=== PATIENT | male | born 1965 | race Caucasian/White ===

== ENCOUNTER 2018-01-04 07:01 | Observation (INO) ==
[2018-01-04] MEDS ORDERED: LACTATED RINGERS 1,000 ML IV STA (07:22)
[2018-01-04 09:04] LABS: Basophils # 0.1 10*3/uL (0.0-0.2); Basophils % 0.4 % (0.0-0.8); Eosinophils # 0.3 10*3/uL (0.0-0.87); Eosinophils % 2.2 % (0.00-10.9); Hematocrit 46.2 VOL% (42.0-52.0); Hemoglobin 15.7 GM/DL (14.0-18.0); Immature Granulocytes % 0.3 %; Immature Granulocytes Absolute 0.04 #; Lymphocytes # 2.4 10*3/uL (1.4-4.0); Lymphocytes % 17.1 % (21.2-54.2); Mean Corpuscular Hemoglobin 31 PG (27-34); Mean Corpuscular Volume 91.1 FL (87-102); Mean Platelet Volume 10.1 FL (9.6-12.0); Monocytes # 1.3 10*3/uL (0.11-0.8); Monocytes % 9.1 % (1.7-12.7); Neutrophils % 70.9 % (38.7-73.9); Platelet Count 310 T/CUMM (130-400); Red Blood Count 5.07 MC/CUMM (3.8-5.5); Red Cell Distribution Width 12.3 % (9.3-17.3); White Blood Count 14.1 T/CUMM (4-12)
[2018-01-04 09:18] LABS: PT Patient Result 10.5 SECS; Partial Thromboplastin Time 27.9 SECS (0-40)
[2018-01-04 09:28] LABS: Lactic Acid 0.7 MMOL/L (0.4-2.0)
[2018-01-04 09:29] LABS: Alanine Aminotransferase 72 U/L (16-61); Albumin 3.7 G/DL (3.4-5.0); Alkaline Phosphatase 95 U/L (45-117); Aspartate Amino Transferase 62 U/L (0-37); Blood Urea Nitrogen 8 MG/DL (7-18); Calcium 8.9 MG/DL (8.5-10.1); Glucose 78 MG/DL (74-106); Potassium 4.3 MMOL/L (3.5-5.1); Sodium 136 MMOL/L (136-145); Total Protein 7.3 G/DL (6.4-8.3)
[2018-01-04] MEDS ORDERED: KETOROLAC 30 MG/1 ML VIAL IV STA (10:32)
[2018-01-04] MEDS ORDERED: KETOROLAC 30 MG/1 ML VIAL ONE (10:35)
[2018-01-04 10:41] LABS: Apearance,Urine CLEAR (Clear); Bilirubin,Urine Negative (Negative); Blood, Urine Negative (Negative); Glucose,Urine (UA) Negative (Negative); Ketones,Urine 20 mg/dL (Negative); Mucus,Urine Occasional /LPF (Occasional); Nitrite,Urine Negative (Negative); Protein,Urine Negative; RBC,Urine 1 /HPF (0-4); Sperm,Urine Occasional /HPF (Negative); Urine Color Yellow (Yellow); Urine Specific Gravity 1.047 (1.001-1.035); Urine Urobilinogen < 2.0 EU/DL (0.2-1.0); WBC,Urine 1 /HPF (0-6)
[2018-01-04 10:57] LABS: Barbiturates Screen,Urine Negative (Negative); Benzodiazepines Screen,Urine Negative (Negative); Cannabinoid Screen,Urine Negative (Negative); Opiate Screen,Urine Negative (Negative); Phencyclidine Screen,Urine Negative (Negative)
[2018-01-04] MEDS ORDERED: MORPHINE 2 MG/1 ML SYRINGE IV PRN (13:09)
[2018-01-04] MEDS ORDERED: chlordiazePOXIDE 25 MG CAPSULE PO PRN (13:09)
[2018-01-04] MEDS ORDERED: ACETAMINOPHEN 325 MG TABLET PO PRN (13:09)
[2018-01-04] MEDS: THIAMINE 100 MG TABLET PO SCH (14:09)
[2018-01-04] MEDS: SODIUM CHLORIDE 0.9% 1,000 ML IV SCH (14:09)
[2018-01-04] MEDS: FOLIC ACID 0.4 MG TABLET PO SCH (14:09)
[2018-01-04] MEDS: ONDANSETRON 4 MG/2 ML VIAL IV PRN (14:13)
[2018-01-04 14:55] LABS: Hematocrit 46.4 VOL% (42.0-52.0); Hemoglobin 15.7 GM/DL (14.0-18.0)
[2018-01-04] MEDS: MUPIROCIN 2% OINT 22 GM TUBE TOP SCH ×2 (15:40→21:22)
[2018-01-04] MEDS: DOXYCYCLINE HYCLATE 100 MG CAPSULE PO SCH ×2 (15:40→21:16)
[2018-01-04] MEDS: NICOTINE 21 MG/24 HR PATCH TRANSDERM SCH (15:40)
[2018-01-04 21:29] LABS: Hematocrit 41.3 VOL% (42.0-52.0); Hemoglobin 13.9 GM/DL (14.0-18.0)
[2018-01-05] MEDS: SODIUM CHLORIDE 0.9% 1,000 ML IV SCH ×2 (00:15→20:18)
[2018-01-05 02:52] LABS: Basophils # 0.1 10*3/uL (0.0-0.2); Basophils % 0.5 % (0.0-0.8); Eosinophils # 0.5 10*3/uL (0.0-0.87); Eosinophils % 5.1 % (0.00-10.9); Hematocrit 42.9 VOL% (42.0-52.0); Hemoglobin 14.7 GM/DL (14.0-18.0); Immature Granulocytes % 0.2 %; Immature Granulocytes Absolute 0.02 #; Lymphocytes # 3.1 10*3/uL (1.4-4.0); Lymphocytes % 33.4 % (21.2-54.2); Mean Corpuscular HGB Conc 34.3 GM/DL (32-36); Mean Corpuscular Hemoglobin 32 PG (27-34); Mean Corpuscular Volume 91.9 FL (87-102); Mean Platelet Volume 11.1 FL (9.6-12.0); Monocytes # 0.9 10*3/uL (0.11-0.8); Neutrophils # 4.7 10*3/uL (1.4-7.4); Neutrophils % 50.8 % (38.7-73.9); Platelet Count 227 T/CUMM (130-400); Red Blood Count 4.67 MC/CUMM (3.8-5.5); Red Cell Distribution Width 12.5 % (9.3-17.3); White Blood Count 9.2 T/CUMM (4-12)
[2018-01-05 04:13] LABS: Albumin 3.3 G/DL (3.4-5.0); Bilirubin,Total 0.6 MG/DL (0.2-1.0); Calcium 8.4 MG/DL (8.5-10.1); Osmolality,Calculated 276.4 MOS/KG (273-304); Potassium 4.5 MMOL/L (3.5-5.1); Total Protein 6.3 G/DL (6.4-8.3)
[2018-01-05] MEDS: PANTOPRAZOLE 40 MG TABLET PO SCH (08:30)
[2018-01-05] MEDS: DOXYCYCLINE HYCLATE 100 MG CAPSULE PO SCH ×2 (08:30→21:09)
[2018-01-05] MEDS: NICOTINE 21 MG/24 HR PATCH TRANSDERM SCH (08:30)
[2018-01-05] MEDS: FOLIC ACID 0.4 MG TABLET PO SCH (08:30)
[2018-01-05] MEDS: THIAMINE 100 MG TABLET PO SCH (08:30)
[2018-01-05 08:47] LABS: Hematocrit 45.6 VOL% (42.0-52.0); Hemoglobin 15.5 GM/DL (14.0-18.0)
[2018-01-05] MEDS: MUPIROCIN 2% OINT 22 GM TUBE TOP SCH ×2 (10:23→21:10)
[2018-01-05] MEDS: ONDANSETRON 4 MG/2 ML VIAL IV PRN ×2 (14:38→21:10)
[2018-01-06 03:52] LABS: Basophils % 0.5 % (0.0-0.8); Eosinophils # 0.5 10*3/uL (0.0-0.87); Eosinophils % 6.6 % (0.00-10.9); Hematocrit 45.2 VOL% (42.0-52.0); Hemoglobin 14.8 GM/DL (14.0-18.0); Immature Granulocytes % 0.3 %; Immature Granulocytes Absolute 0.02 #; Lymphocytes # 3.3 10*3/uL (1.4-4.0); Lymphocytes % 41.2 % (21.2-54.2); Mean Corpuscular HGB Conc 32.7 GM/DL (32-36); Mean Corpuscular Hemoglobin 31 PG (27-34); Mean Corpuscular Volume 93.6 FL (87-102); Mean Platelet Volume 10.6 FL (9.6-12.0); Monocytes # 0.8 10*3/uL (0.11-0.8); Monocytes % 10.7 % (1.7-12.7); Neutrophils # 3.2 10*3/uL (1.4-7.4); Neutrophils % 40.7 % (38.7-73.9); Platelet Count 314 T/CUMM (130-400); Red Blood Count 4.83 MC/CUMM (3.8-5.5); Red Cell Distribution Width 12.4 % (9.3-17.3); White Blood Count 7.9 T/CUMM (4-12)
[2018-01-06] MEDS: ONDANSETRON 4 MG/2 ML VIAL IV PRN (04:22)
[2018-01-06] MEDS: THIAMINE 100 MG TABLET PO SCH (08:53)
[2018-01-06] MEDS: FOLIC ACID 0.4 MG TABLET PO SCH (08:53)
[2018-01-06] MEDS: PANTOPRAZOLE 40 MG TABLET PO SCH (08:53)
[2018-01-06] MEDS: DOXYCYCLINE HYCLATE 100 MG CAPSULE PO SCH (08:53)
[2018-01-06] MEDS: NICOTINE 21 MG/24 HR PATCH TRANSDERM SCH (08:54)
[2018-01-06] MEDS: MUPIROCIN 2% OINT 22 GM TUBE TOP SCH (08:54)
[2018-01-06 14:54] VITALS: BP 115/69
== END 2018-01-06 13:45 | disposition home or self-care (01) ==
LOC: EDBD → EDUNIT# → N.EDINP 07:01 → N.ED 07:01 → N.EDINP 12:30 → N.3E 12:50
PROVIDERS: ADMIT Surgery; ATTEND Surgery